=== PATIENT | male | born 1975 | race Caucasian/White ===

== ENCOUNTER 2016-10-20 09:52 | Day surgery (SDC) | payer OTHER ==
[2016-09-30 11:42] VITALS: BMI 28.0
--- NOTE | 2016-09-30 12:12 | PAT Medication Instructions ---
Service Date Sep 30, 2016. Current Home Medication List Aspirin (Aspirin Ec), 81 MG PO QAM Atorvastatin (Lipitor), 5 MG PO HS Lisinopril (Zestril), 2.5 MG PO QAM Metoprolol Succ (Toprol Xl) (Toprol-Xl), 12.5 MG PO BID Nitroglycerin (Nitrostat), 0.4 MG UT PRN [Isosorbide Dinitrate], 1 TAB PO QAM Medication Instructions For Your Scheduled Surgery - Continue as directed: Nitroglycerin (Nitrostat), 0.4 MG UT PRN - Hold the following medications the morning of surgery: Lisinopril (Zestril), 2.5 MG PO QAM - Take the following medications the morning of surgery with a sip of water OTHERWISE NOTHING TO EAT OR DRINK AFTER MIDNIGHT: [Isosorbide Dinitrate], 1 TAB PO QAM Aspirin (Aspirin Ec), 81 MG PO QAM Metoprolol Succ (Toprol Xl) (Toprol-Xl), 12.5 MG PO BID - Take the following medications as scheduled the night before surgery: Atorvastatin (Lipitor), 5 MG PO HS Metoprolol Succ (Toprol Xl) (Toprol-Xl), 12.5 MG PO BID If you have any questions please call us at [phone] or [phone] or [phone]
[2016-09-30 12:57] LABS: BASO % 0.7 %; BASO ABS # 0.08 K/uL (0-0.2); COMPLETE YES; EOS % 2.5 %; HEMATOCRIT 46.1 % (42-52); IG% 0.3 %; LYMPH % 21.6 %; LYMPH ABS # 2.58 K/uL (1.2-3.4); MEAN CELL VOLUME 91.7 fL (80-100); MEAN CORPUSCULAR HEMOGLOBIN 31.4 pg (25-34); MEAN CORPUSCULAR HGB CONC 34.3 g/dl (32-36); MEAN PLATELET VOLUME 11.3 fL (7.4-10.4); MONO % 7.7 %; NEUT % 67.2 %; PLATELET COUNT 180 K/uL (130-400); RED BLOOD COUNT 5.03 M/uL (4.7-6.1); WHITE BLOOD COUNT 11.93 K/uL (4.8-10.8)
[2016-09-30 13:06] LABS: BUN/CREATININE RATIO 10.5 (10-20); CALCIUM 9.3 mg/dl (8.5-10.1); CREATININE 1.1 mg/dl (0.60-1.40); POTASSIUM 4.1 mmol/L (3.5-5.1)
--- NOTE | 2016-09-30 13:12 | DIAGNOSTIC IMAGING REPORT ---
CHEST PREADMISSION(PA/LAT) CLINICAL HISTORY: PAT preoperative evaluation COMPARISON STUDY: No previous studies for comparison. FINDINGS: The bones soft tissues and hemidiaphragms are normal. The cardiomediastinal silhouette is normal. The lungs are clear. The pulmonary vasculature is normal. IMPRESSION: Negative chest. The above report was generated using voice recognition software. It may contain grammatical, syntax or spelling errors. Electronically signed by: Everett Stoll M.D. 09/30/2016 1:11 PM Dictated Date/Time: 09/30/2016 1:11 PM
[2016-09-30 13:21] LABS: URINE APPEARANCE CLEAR (CLEAR); URINE BILIRUBIN NEG (NEG); URINE COLOR YELLOW; URINE NITRITE NEG (NEG); URINE PH 6.5 (4.5-7.5); UROBILINOGEN NEG (NEG); ZZUR CULT IF INDIC CLEAN CATCH NO
[2016-09-30 13:23] LABS: MANUAL MICROSCOPIC REQUIRED? NO; REVIEW REQ? NO
[~2016-10-20] VITALS: Ht 182.9 cm; Wt 96.0 kg
[~2016-10-20 09:52] MED LIST: ASPI81TA28 PO; ATOR10TA88 PO; ATROPINE SULFATE 0.1 MG/ML 5ML SYR IV PRN; CEFAZOLIN 2000 MG/60 ML D5W IV SCH; EpHEDrine SULFATE INJ 50 MG/ML AMP IV PRN; FENTANYL CITRATE INJ 50 MCG/1 ML 2 ML VIAL IV PRN; FENTANYL CITRATE INJ 50 MCG/1 ML 2 ML VIAL ONE; ISOSORBIDE DINITRATE PO; LACTATED RINGER'S 1000ML 1,000 ML IV SCH; LISI-729 PO; METO25TA3 PO; MIDAZOLAM HCL 1 MG/ML 2ML VIAL ONE; NTRGSL/4 UT; ONDANSETRON INJ 2 MG/ML 2 ML VIAL IV PRN
--- NOTE | 2016-10-20 10:06 | History & Physical Bridge Note ---
H&P Re-Evaluation Bridge Note: I have examined the patient, reviewed the History & Physical and in the interval since the performance of the History & Physical I have noted the following changes of clinical significance: No changes noted
--- NOTE | 2016-10-20 10:07 | History and Physical ---
History & Physical Date Oct 20, 2016. Chief Complaint Back and leg pain History of Present Illness The patient is a 41 year old male with complaints of back and leg pain Additional History Hepatic Disease: No Endocrine Disorder: No Kidney Disease: No Hypertension: Yes Heart Disease: No Bleeding Tendencies: No Infectious Diseases: No Allergies Coded Allergies: BEE STING (Unverified Allergy, Unknown, SWELLING AT SITE, 09/30/16) NO KNOWN DRUG ALLERGIES (Unverified Allergy, Unknown, NONE, 09/30/16) Home Medications Scheduled Aspirin (Aspirin Ec), 81 MG PO QAM Atorvastatin (Lipitor), 5 MG PO HS Lisinopril (Zestril), 2.5 MG PO QAM Metoprolol Succ (Toprol Xl) (Toprol-Xl), 12.5 MG PO BID Nitroglycerin (Nitrostat), 0.4 MG UT PRN [Isosorbide Dinitrate], 1 TAB PO QAM Physical Examination Skin: warm/dry, no rash Eyes: normal inspection, EOMI, sclerae normal ENT: normal ENT inspection, pharynx normal Head: normocephalic, atraumatic Neck: supple, no adenopathy, trachea midline Respiratory/Chest: lungs clear, normal breath sounds, no respiratory distress Cardiovascular: regular rate, rhythm, no edema, no murmur Abdomen / GI: normal bowel sounds, non tender Back: normal inspection Extremities: normal inspection, normal range of motion Neurologic/Psych: no motor/sensory deficits, alert, normal reflexes, oriented x 3 Diagnosis Herniated nucleus pulposus L5-S1 on the left Plan of Treatment Lumbar laminectomy L5-S1 on the left
[2016-10-20 10:10] VITALS: Ht 182.9 cm; Wt 96.0 kg
[2016-10-20 10:11] VITALS: BP 165/98; PULSE 72; TEMP 36.9; O2SAT 93
[2016-10-20] MEDS ORDERED: BACITRACIN 50000 UNIT VIAL ONE (10:27)
[2016-10-20] MEDS ORDERED: BUPIVACAINE/EPINEPHRINE 0.5% MPF 1:200,000 10 ML VIAL ONE (10:27)
[2016-10-20] MEDS ORDERED: FENTANYL CITRATE INJ 50 MCG/1 ML 2 ML VIAL ONE (11:00)
[2016-10-20] MEDS ORDERED: HYDROmorphone INJ 2 MG/ML SYR/VIAL ONE (11:00)
[2016-10-20] MEDS ORDERED: LIDOCAINE HCL 2% 2 ML VIAL (20MG/ML) ONE (11:24)
[2016-10-20] MEDS ORDERED: DEXAMETHASONE SOD INJ 4 MG/ML VIAL ONE (11:24)
[2016-10-20] MEDS ORDERED: ROCURONIUM BROMIDE 10 MG/ML 5 ML VIAL ONE (11:24)
[2016-10-20] MEDS ORDERED: PROPOFOL IV EMULSION 10 MG/ML 20 ML VIAL IV ONE (11:24)
[2016-10-20] MEDS ORDERED: NEOSTIGMINE METHYLSULFATE 1 MG/ML 10ML VIAL ONE (11:24)
[2016-10-20] MEDS ORDERED: LABETALOL HCL IV 5 MG/ML 20ML IV ONE (11:24)
[2016-10-20] MEDS ORDERED: EpHEDrine SULFATE 50MG/5ML SYR ONE (11:24)
[2016-10-20] MEDS ORDERED: ONDANSETRON INJ 2 MG/ML 2 ML VIAL ONE (11:24)
[2016-10-20] MEDS ORDERED: GLYCOPYRROLATE INJ 0.2 MG/ML VIAL ONE (11:24)
[2016-10-20] MEDS ORDERED: KETOROLAC TROMETHAMINE 30 MG/ML VIAL ONE (11:24)
[2016-10-20] MEDS ORDERED: OXYC-57 PO (11:43)
--- NOTE | 2016-10-20 11:43 | Discharge Instructions ---
Discharge Instructions Date of Service Oct 20, 2016. Admission Reason for Admission: Lumbar Spinal Stenosis Discharge Discharge Diagnosis / Problem: herniated disc L5-S1 Discharge Goals Goal(s): Improve function Activity Recommendations Activity Limitations: per Instructions/Follow-up section . Instructions / Follow-Up Instructions / Follow-Up ACTIVITY RECOMMENDATIONS: SELF CARE INSTRUCTIONS AFTER A LAMINECTOMY 1. No prolonged sitting (less than 30 minutes for the first 3 weeks after surgery). 2. No bending, lifting more than 5 pounds, or twisting (roll like a log when turning in bed). 3. You may shower 3 days after surgery if no drainage from wound. Thoroughly dry wound. Do not soak in the tub. 4. Please walk as much as you can for exercise. Gradually increase the distance that you walk as your endurance increases. 5. You may drive in 7-10 days if you are comfortable and no longer requiring pain medications. SPECIAL CARE INSTRUCTIONS: VERY IMPORTANT TO READ AND REVIEW A. Your surgical incision has been closed with a cosmetic suture under the skin that will dissolve in about 6 weeks. In 14 days, you can use a pair of clean scissors and cut the suture that is left outside of the skin at the ends of your incision. B. Complications are uncommon, but please contact us if you have any signs or symptoms of: 1. wound infection (fever higher than 102.5 degrees F, redness, separation of wound, drainage, or increasing pain from the incision) 2. blood clots in legs (pain, swelling, redness and warmth in legs) 3. urinary tract infection (fever higher than 102.5 degrees, burning upon urination or increased frequency of urination) 4. nerve problems (inability to walk on your toes or heels, numbness, loss of bowel or bladder control) 5. any other symptoms that concern you. C. Please call the office at if you have any concerns or questions about your operation or recovery. MANAGING PAIN AFTER SPINAL SURGERY 1. Narcotic medication is intended for short-term use and will be provided for surgical pain. Surgical pain usually lasts for a period of 4-6 weeks. Narcotic medication includes Percocet, Vicodin, Darvocet, Tylenol #3 or Lortab. 2. Longer-term pain is more appropriately treated with non-narcotic medication such as Tylenol ES. 3. Muscle spasm is not appropriately treated with narcotics. Muscle relaxers such as Soma, Flexeril or Skelaxin can be used along with Tylenol ES. 4. Remember that we all live with some "aches and pains". This is not unusual or uncommon after an injury or as we get older. 5. We will provide appropriate medication within the normal guidelines of their prescribed use. We will also be very cautious and aware of potential abuse and extended duration of patients' medication needs. 6. Please allow 2-3 days to process refills. Prescriptions will not be mailed but must be picked up at the office. FOLLOW UP VISIT: Keep your scheduled follow-up appointment. Any questions, please call the office at . Current Hospital Diet Patient's current hospital diet: Discharge Diet Recommended Diet: Regular Diet Procedures Procedures Performed: L5-S1 Microdiscectomy Pending Studies Studies pending at discharge: no Medical Emergencies . Who to Call and When: Medical Emergencies: If at any time you feel your situation is an emergency, please call 911 immediately. . Non-Emergent Contact Non-Emergency issues call your: Primary Care Provider . "Provider Documentation" section prepared by Gibran Betancourt. . VTE Core Measure Inpt VTE Proph given/why not?: Jan Mejia, SCD's
[2016-10-20] MEDS ORDERED: OXYCODONE HCL IR 5 MG TAB (IMMEDIATE RELEASE) PO PRN (11:45)
[2016-10-20] MEDS ORDERED: ACETAMINOPHEN 325 MG TAB PO PRN (11:45)
[2016-10-20] MEDS ORDERED: ACETAMINOPHEN 650 MG SUPP PR PRN (11:45)
[2016-10-20] MEDS ORDERED: HYDROmorphone INJ 1 MG/ML SYR IV PRN (11:45)
--- NOTE | 2016-10-20 11:47 | [facility] Operative Report ---
Operative Report Operative Date Oct 20, 2016. Pre-Operative Diagnosis Herniated Nucleus Pulposus L5-S1 on the Left Post-Operative Diagnosis Herniated Nucleus Pulposus L5-S1 on the Left Procedure(s) Performed L5-S1 Microdiscectomy Surgeon Dr. Betancourt Plant Physiologist Surgeon(s) none Estimated Blood Loss 10 ml Findings Herniated free fragment L5-S1 on the left Specimens none per surgeon Description of Procedure Patient was met with preoperatively case discussed all questions are dressed. After informed consent patient was taken back to the operative suite and after undergoing successful intubation placed in a prone position on the Kyle table top of the Isaiah frame. All bony prominences well padded eyes inspected to ensure no external pressure. Lumbar spine is prepped and draped nostril fashion. With the assistance of fluoroscopy we identified the 5 S1 interlaminar space. Midline incision was then created overlying this region. Sharp dissection with the assistance of Bovie cautery was performed onto an exposing the interlaminar space at L5-S1 the left. Self-retaining retractors placed. Then created a small laminotomy excising lateral portion of the ligamentum flavum to expose it compressed traversing S1 nerve root. This was mobilized medially and several loose fragments of disc material identified and retrieved. The area was then explored to ensure all loose fragments were addressed. Then copiously irrigated. Incision was then closed with 1 Vicryl in the fascia 2-0 Vicryl subcutaneously for Monocryl for final skin closure. Steri-Strips sterile dressings placed. Patient we can taken to PACU stable condition. I attest to the content of the Intraoperative Record and any orders documented therein. Any exceptions are noted below.
[2016-10-20] MEDS ORDERED: FLOSEAL HEMOSTATIC MATRIX 5ML TOP ONE (11:53)
--- NOTE | 2016-10-20 11:53 | DIAGNOSTIC IMAGING REPORT ---
INTRAOPERATIVE LUMBAR SPINE SINGLE VIEW CLINICAL HISTORY: L5-S1 MICRODISCECTOMY COMPARISON STUDY: No previous studies for comparison. FINDINGS: 6 seconds of fluoroscopic time was utilized. A single intraoperative fluoroscopic spot images provided for interpretation. There are skin retractors at the S1 level posteriorly. There is a metallic probe projecting over the posterior aspect the L5-S1 disc. IMPRESSION: Intraoperative fluoroscopic spot image for localization purposes Electronically signed by: Michael Thomas M.D. 10/20/2016 11:51 AM Dictated Date/Time: 10/20/2016 11:51 AM
--- NOTE | 2016-10-20 12:24 | Anesthesiology Progress Note ---
Anesthesia Post Op Note Date & Time Oct 20, 2016 at 12:24 Vital Signs Pain Intensity: 0 Vital Signs Past 12 Hours Date Time Temp Pulse Resp B/P (MAP) Pulse Ox O2 Delivery O2 Flow Rate FiO2 10/20/16 12:18 67 20 10/20/16 12:18 67 20 93 10/20/16 12:15 123/79 10/20/16 12:15 36.1 66 4 123/79 (92) 94 Nasal Cannula 2 10/20/16 12:13 71 23 10/20/16 12:13 71 23 93 10/20/16 12:10 124/84 10/20/16 12:08 67 20 97 10/20/16 12:08 67 20 10/20/16 12:07 72 21 96 10/20/16 12:07 72 21 10/20/16 12:05 121/84 10/20/16 12:02 67 19 10/20/16 12:02 67 19 97 10/20/16 12:00 129/91 10/20/16 11:57 70 12 98 10/20/16 11:57 70 12 10/20/16 11:55 130/88 10/20/16 11:52 36.2 91 16 152/110 99 Mask 10 10/20/16 11:52 89 21 152/110 98 10/20/16 11:52 89 21 10/20/16 10:11 36.9 72 20 165/98 (120) 93 Room Air Notes Mental Status: alert / awake / arousable, participated in evaluation Pt Amnestic to Procedure: Yes Nausea / Vomiting: adequately controlled Pain: adequately controlled Airway Patency, RR, SpO2: stable & adequate BP & HR: stable & adequate Hydration State: stable & adequate Anesthetic Complications: no major complications apparent
[2016-10-20 12:35] VITALS: BP 132/81; PULSE 61; TEMP 36.7; O2SAT 94
[2016-10-20 13:05] VITALS: BP 123/82; PULSE 59; O2SAT 94
[2016-10-20 13:35] VITALS: BP 131/86; PULSE 59; TEMP 36.6; O2SAT 96
== END 2016-10-20 13:45 | disposition home or self-care (01) ==
LOC: C.ACU 09:52
PROVIDERS: ATTEND Orthopaedic Surgery Orthopaedic Surgery of the Spine
DX: M51.27 Other intervertebral disc displacement, lumbosacral region (principal); Z79.82 Long term (current) use of aspirin

== ENCOUNTER 2017-02-19 16:40 | Emergency (ER) | payer OTHER ==
[~2017-02-19] VITALS: Ht 182.9 cm; Wt 88.0 kg
[~2017-02-19 16:40] MED LIST changes: +ATOR10TA82 PO; -ATOR10TA88 PO; -ATROPINE SULFATE 0.1 MG/ML 5ML SYR IV PRN; -CEFAZOLIN 2000 MG/60 ML D5W IV SCH; -EpHEDrine SULFATE INJ 50 MG/ML AMP IV PRN; -FENTANYL CITRATE INJ 50 MCG/1 ML 2 ML VIAL IV PRN; -FENTANYL CITRATE INJ 50 MCG/1 ML 2 ML VIAL ONE; -LACTATED RINGER'S 1000ML 1,000 ML IV SCH; -MIDAZOLAM HCL 1 MG/ML 2ML VIAL ONE; -ONDANSETRON INJ 2 MG/ML 2 ML VIAL IV PRN
[2017-02-19 16:42] VITALS: BP 180/117; PULSE 117; TEMP 36.7; O2SAT 97; Ht 182.9 cm; Wt 88.0 kg
[2017-02-19] MEDS ORDERED: Isosorbide PO (17:06)
[2017-02-19] MEDS ORDERED: OXYCODONE/ACETAMINOPHEN 5-325 TAB PO ONE (17:15)
--- NOTE | 2017-02-19 19:12 | DIAGNOSTIC IMAGING REPORT ---
LUMBAR SPINE MRI HISTORY: severe lumbar back pain with left-sided radiculopathy and weakness TECHNIQUE: Multiplanar multisequence MRI of the lumbar spine was performed without the use of contrast. COMPARISON: None. FINDINGS: For the purpose of the report the L5-S1 disc space will be located on axial image 27 of 30. Alignment and curvature intact. No acute fracture or subluxation. Mild anterior wedging within the superior endplate of L1. This is consistent with an old compression deformity. Disc spaces are relatively preserved. The conus terminates at the L1-L2 disc space level. The visualized retroperitoneal soft tissues are unremarkable. L1-L2: No significant central canal or neural foraminal narrowing. L2-L3: No significant central canal or neural foraminal narrowing. L3-L4: No significant central canal or neural foraminal narrowing. L4-L5: Small broad-based posterior disc bulge with a tiny focal central disc protrusion. This results in mild central canal and mild bilateral neural foraminal narrowing. L5-S1: Postoperative changes consistent with prior left hemilaminectomy. There is a 13 x 7 mm T2 hyperintense and T1 isointense oval-shaped nodule compressing the left side of the thecal sac. This abuts the disc space at this level and favors a large disc extrusion. This compresses the transiting left S1 nerve root. This also results in moderate to severe left-sided central canal narrowing. Some of this could be related to postoperative granulation tissue. IMPRESSION: 1. Postoperative changes consistent with prior left L5-S1 hemilaminectomy. 2. There is a 13 x 7 mm oval-shaped nodule compressing the left side of the thecal sac at the L5-S1 level. This appears to connect to the disc and therefore favors a large disc extrusion. Some of this could be related to postoperative granulation tissue. This lesion compresses the transiting left S1 nerve root. 3. Small broad-based posterior disc bulge with a tiny focal central disc protrusion at L4-L5 resulting in mild central canal narrowing. Electronically signed by: Bradley Jeter M.D. 02/19/2017 7:10 PM Dictated Date/Time: 02/19/2017 7:03 PM
[2017-02-19] MEDS ORDERED: MoRPHine SULFATE 10 MG/ML CARP/VIAL IV STA (19:51)
[2017-02-19] MEDS ORDERED: ONDANSETRON INJ 2 MG/ML 2 ML VIAL IV STA (19:51)
[2017-02-19] MEDS ORDERED: DEXAMETHASONE **PF** INJ 10 MG/ML VIAL IV ONE (20:00)
[2017-02-19] MEDS ORDERED: METH4PAK PO (20:21)
[2017-02-19] MEDS ORDERED: OXYC-57 PO (20:21)
[2017-02-19] MEDS ORDERED: PERCOCET HOME PACK PO ONE (20:30)
--- NOTE | 2017-02-19 21:45 | EMERGENCY ROOM VISIT NOTE ---
ED Visit Note First contact with patient: 16:49 Chief Complaint: Lower back pain. History of Present Illness: Mr. Roberson is a 42-year-old white male who ambulates into the ED complaining of lumbar back pain. Historically patient had an L5-S1 herniated disc and on 10/20/2016 he had a microdiscectomy performed by Dr. Betancourt. Patient reports postoperatively has been doing well. Patient reports he returned to work with medium work duty. He reports approximately 3 weeks ago he started having return of pain. He reports at that time it was mild but it has progressed over the last 3 weeks. He reports last Tuesday, 6 days ago, his pain became severe. Since that time his pain has been constant. He places his discomfort at the L4 through S1 area over the bony prominences and minimally just left lateral to the bony spine. He describes his pain as a sharp sensation. He rates his discomfort 9/10. He reports his pain is radiating into his buttocks and then moves to the medial aspect of the left lower leg. Pain typically stops at the level of the ankle but intermittently does go down into the foot. This pain worsens with all movement of the back and palpation of the lower lumbar spine. He has not identified any alleviating factors related to the pain. He reports he has been using ibuprofen without relief of his discomfort. Associated with with his pain he feels like his left lower leg is weak and intermittently he has paresthesias following the same dermatomal tract. Additionally he reports he was seen by Dr. Betancourt's physician captain assistant 5 days ago. No additional therapies were ordered but he was encouraged to go to the emergency department for worsening pain. He denies fevers, chills, sweats, skin eruptions, skin color changes, recent direct or repetitive trauma to the back, abdominal pain, nausea, vomiting, diarrhea, constipation, rectal bleeding, black/tarry stools, urinary symptoms, hematuria, genital paresthesias, bowel and bladder dysfunction. Review of Systems: As noted above in history of present illness. All body systems were reviewed and found to be negative as noted above. Past Medical History: As previously noted, heart disease, hypertension, status post cardiac stent and unspecified knee surgery. Current Medications: Zestril, aspirin, Toprol, Lipitor, nitroglycerin. Allergies to Medications: Patient denies. Social History: Patient is currently employed; he feels safe in his home environment; he admits to tobacco use and denies alcohol use. Physical Examination: Vital Signs: Date Time Temp Pulse Resp B/P (MAP) Pulse Ox O2 Delivery O2 Flow Rate FiO2 02/19/17 16:42 36.7 117 16 180/117 97 Room Air GENERAL: 42-year-old male in mild to moderate distress due to pain, nontoxic- appearing, afebrile and hemodynamically stable. NEUROLOGICAL: Awake, alert and oriented to person, place and time. Answering questions appropriately and following commands. Good hand eye coordination. SKIN: Warm, dry and pink. No soft tissue eruptions or trauma noted. HEENT: Atraumatic and normocephalic. BACK: No tenderness over the bony cervical and thoracic spine. No CVA tenderness. Moderate tenderness in the L4 through S1 bony prominence of the spine without for many, swelling, ecchymosis or erythema. I do not appreciate any crepitus or step-offs. There is also mild pain in the left lumbar paraspinous musculature in this area without spasm. Positive straight leg raise test that approximately 25 on the left. THORAX: Lungs sounds are clear to auscultation and equal bilaterally with symmetrical chest wall. ABDOMEN: Flat, soft and nontender. Positive bowel sounds in all quadrants. No guarding, rigidity or organomegaly. LOWER EXTREMITIES: Moves all extremities well on command and with purpose. All distal neurovascular statuses are intact and equal bilaterally. No calf tenderness or cords. Muscle strength on the left with knee flexion and extension and ankle plantar flexion and dorsiflexion are slightly weaker than the right. Patellar tendons are intact and equal bilaterally. He was able to distinguish light sensations through all dermatomes of the lower legs. ED Course: Patient is assessed as noted above. Patient's medication list was reviewed. Patient was given one Percocet 5/325 mg tablet by mouth for pain. Lumbar Spine MRI: Was reviewed by myself and read by the radiologist showing postoperative changes consistent with prior to L5-S1 hemilaminectomy. There is a 13 x 7 mm oval-shaped nodule compressing the left side of the thecal sac at the L5-S1 level. This appears to be connected to the disc and therefore favors a large disc extrusion. This lesion compresses the transiting left S1 nerve root. Small broad-based posterior disc bulging with a tiny focal central disc protrusion at L4-L5 resulting in mild central canal narrowing. Patient was reassessed multiple times during his stay in the emergency department. Patient's case was reviewed with Dr. Lee; we agreed on diagnostic approach, treatment, disposition and plan. Patient's case was consulted with Jersey Carlos PA-C; he recommended an IV course of Decadron, discharged to home with edge all dosepak, pain medications and office follow-up this week. An IV lock was initiated and patient received 10 mg of Decadron, 6 mg of morphine and 4 mg of Zofran for his symptoms. After his medications patient was reassessed and subjectively reported he was feeling better. Patient is educated about today's findings and instructed on his treatment plan ; he verbalized understanding and agreement with this plan. Clinical Impression: Lumbar back pain with left-sided radiculopathy. Decision-Making: Initially my differential diagnosis I considered herniated disc , muscle strain, muscle spasm, ureter calculus , discitis and other causes. Disposition: Patient discharged home in stable condition accompanied by female friends; prior to departure he was reassessed and subjectively reported he was feeling much better and rated his overall discomfort 2/10. Plan: Comfort measures were discussed with the patient including rest, proper lifting and moving techniques, and a sliding pain medication scale of ibuprofen, Percocet and acetaminophen; patient is given appropriate narcotic precautions and his name was checked on the state database and no red flags were noted. Patient was prescribed a Medrol Dosepak. Patient is encouraged to call his back surgeon tomorrow and inform them of today 's ED visit and request follow-up care and treatment. Patient was encouraged return ED for worsening pain, worsening leg weakness/ numbness/tingling, fevers, abdominal pain, bowel and bladder dysfunction, genital paresthesias or any new/concerning symptoms.
== END 2017-02-19 20:34 | disposition home or self-care (01) ==
LOC: C.EDB 16:41 → C.EDD 20:34
DX: M54.16 Radiculopathy, lumbar region (principal); Z98.890 Other specified postprocedural states; I11.9 Hypertensive heart disease without heart failure; F17.200 Nicotine dependence, unspecified, uncomplicated; Z79.82 Long term (current) use of aspirin; Z95.5 Presence of coronary angioplasty implant and graft

== ENCOUNTER → 2017-03-04 | Day surgery (SDC) | payer OTHER ==
[2017-02-22 17:20] LABS: HEMATOCRIT 46.4 % (42-52); HEMOGLOBIN 16.3 g/dL (14.0-18.0); MEAN CELL VOLUME 91.7 fL (80-100); MEAN CORPUSCULAR HEMOGLOBIN 32.2 pg (25-34); MEAN CORPUSCULAR HGB CONC 35.1 g/dl (32-36); PLATELET COUNT 209 K/uL (130-400); RED CELL DISTRIBUTION WIDTH CV 13.9 % (11.5-14.5); RED CELL DISTRIBUTION WIDTH SD 46.6 fL (36.4-46.3); WHITE BLOOD COUNT 14.36 K/uL (4.8-10.8)
[2017-02-22 17:21] LABS: BASO % 0.1 %; BASO ABS # 0.02 K/uL (0-0.2); EOS % 0.1 %; EOS ABS # 0.01 K/uL (0-0.5); IG# 0.02 K/uL (0.00-0.02); LYMPH % 9.1 %; LYMPH ABS # 1.31 K/uL (1.2-3.4); MEAN PLATELET VOLUME 10.9 fL (7.4-10.4); MONO ABS # 0.43 K/uL (0.11-0.59); NEUT % 87.6 %; NEUT ABS # 12.57 K/uL (1.4-6.5)
[2017-02-22 17:46] LABS: BLOOD UREA NITROGEN 15 mg/dl (7-18); CALCIUM 9.3 mg/dl (8.5-10.1); CARBON DIOXIDE 28 mmol/L (21-32); CREATININE 1.18 mg/dl (0.60-1.40); GLUCOSE 118 mg/dl (70-99); POTASSIUM 3.6 mmol/L (3.5-5.1); SODIUM 138 mmol/L (136-145)
[2017-03-02 10:42] VITALS: BMI 29.0
[~2017-03-04] VITALS: Ht 182.9 cm; Wt 97.7 kg
[~2017-03-04] MED LIST changes: +ATOR-22 PO; -ATOR10TA82 PO; +ATROPINE SULFATE 0.1 MG/ML 5ML SYR IV PRN; +CEFAZOLIN 2000MG IV PUSH 10 ML IV SCH; +EpHEDrine SULFATE INJ 50 MG/ML AMP IV PRN; +FENTANYL CITRATE INJ 50 MCG/1 ML 2 ML VIAL IV PRN; +HYDR12.55 PO; +HYDROmorphone INJ 1 MG/ML SYR IV PRN; +HydrALAZINE HCL 20 MG/ML VIAL IV PRN; +HydrALAZINE HCL 20 MG/ML VIAL ONE; +IMDSR/30 PO; +ISM20 PO; -ISOSORBIDE DINITRATE PO; +ISOSORBIDE MONONITRATE 20 MG TAB PO SCH; +LACTATED RINGER'S 1000ML 1,000 ML IV SCH; +LISI20TA3 PO; +LISINOPRIL 5 MG TAB PO SCH; +METOPROLOL SUCC 25MG EXT REL TAB PO SCH; +NITROGLYCERIN 0.4 MG SL PER TAB CHARGE UT PRN; +ONDANSETRON INJ 2 MG/ML 2 ML VIAL IV PRN; +OXYC15TA89 PO; +PATIENT'S HEIGHT AND/OR WEIGHT NEEDED SCH; +RXC5 PO
[2017-03-04 12:05] VITALS: BP 179/132; PULSE 80; TEMP 36.3; O2SAT 99; Ht 182.9 cm; Wt 97.7 kg
[2017-03-04 12:31] LABS: HEMATOCRIT 42.6 % (42-52); MEAN CELL VOLUME 90.3 fL (80-100); MEAN CORPUSCULAR HEMOGLOBIN 31.8 pg (25-34); MEAN PLATELET VOLUME 10.5 fL (7.4-10.4); PLATELET COUNT 214 K/uL (130-400); RED CELL DISTRIBUTION WIDTH CV 13.6 % (11.5-14.5); RED CELL DISTRIBUTION WIDTH SD 45.2 fL (36.4-46.3); WHITE BLOOD COUNT 10.68 K/uL (4.8-10.8)
[2017-03-04 12:47] LABS: MEAN CORPUSCULAR HGB CONC 35.2 g/dl (32-36)
[2017-03-04 13:15] VITALS: BP 192/115; PULSE 86; TEMP 37; O2SAT 98
--- NOTE | 2017-03-04 13:30 | Anesthesiology Progress Note ---
Anesthesia Progress Note Date of Service Mar 04, 2017. Progress Notes The patient was scheduled for L5-S1 revision/decompression with Dr. Betancourt this afternoon. On arrival the patient's blood pressure was markedly elevated to 190-200/134 which was measured on both arms with the appropriate sized BP cuff, HR was 83. The patient is asymptomatic denying chest pain, shortness of breath, lightheaded or dizziness or severe headache or visions changes. He admits that he is not compliant with his BP medications and has skipped them several times this week. The patient has a h/o CAD with an [place] 06/27/15 resulting in cardiac cath with MARIO to the Lcx. He sees cardiology in [place]. I spoke to Dr. Betancourt who agrees that the patient's blood pressure needs to be better controlled prior to elective surgery and would like the patient admitted to the medicine service. I spoke to Dr. Oshea who will be admitting the patient and gave him a full report as well as the nurse on the floor. The patient will be going to telemetry for close monitoring. While in the ASU the patient was given 5mg IV labetalol and 10mg IV hydralazine. BP prior to transfer to the floor was 164/117 HR 70s. An EKG showed no acute ischemic changes.
--- NOTE | 2017-03-04 14:01 | NUR ---
pt came from preop area, received a call from dr. luu and was told pt to be admitted for htn and dr. goodrich would write orders, pt brought to floor, bp-192/115, could not find an admission order, spoke with service dr. wood wrote orders, pt given hydralazine prn for bp at this time and stated that if he wasn't having surgery he wasn't staying at this time, pac ananth lobo came to floor to admit pt ref admission at this time stated he wasn't aware he was being admitted, pt signed ama paper, dr. mackey updated at this time, pt educated on htn and medication education.
--- NOTE | 2017-03-04 14:52 | NUR ---
pt given hydralazine prn pt bp still elevated attempted to give pt daily meds he did not take today but pt ride here and he wanted to leave, pt educated on meds and htn at this time, requesting to walk to door, pt did not want any w/c at this time, d/c to home with father and belongings retrieved from security .
== END | disposition home or self-care (01) ==
LOC: C.ACU 11:34
PROVIDERS: ATTEND Orthopaedic Surgery Orthopaedic Surgery of the Spine
DX: M48.061 Spinal stenosis, lumbar region without neurogenic claudication (principal); Z53.09 Procedure and treatment not carried out because of other contraindication

== ENCOUNTER → 2017-05-18 | Outpatient (CLI) | payer OTHER ==
[~2017-05-18] MED LIST changes: -ATROPINE SULFATE 0.1 MG/ML 5ML SYR IV PRN; -CEFAZOLIN 2000MG IV PUSH 10 ML IV SCH; -EpHEDrine SULFATE INJ 50 MG/ML AMP IV PRN; -FENTANYL CITRATE INJ 50 MCG/1 ML 2 ML VIAL IV PRN; -HYDR12.55 PO; -HYDROmorphone INJ 1 MG/ML SYR IV PRN; -HydrALAZINE HCL 20 MG/ML VIAL IV PRN; -HydrALAZINE HCL 20 MG/ML VIAL ONE; -IMDSR/30 PO; -ISOSORBIDE MONONITRATE 20 MG TAB PO SCH; -LACTATED RINGER'S 1000ML 1,000 ML IV SCH; -LISI20TA3 PO; -LISINOPRIL 5 MG TAB PO SCH; -METOPROLOL SUCC 25MG EXT REL TAB PO SCH; -NITROGLYCERIN 0.4 MG SL PER TAB CHARGE UT PRN; -ONDANSETRON INJ 2 MG/ML 2 ML VIAL IV PRN; -PATIENT'S HEIGHT AND/OR WEIGHT NEEDED SCH; -RXC5 PO
[2017-05-18 14:29] LABS: BASO % 0.4 %; BASO ABS # 0.06 K/uL (0-0.2); EOS ABS # 0.16 K/uL (0-0.5); HEMATOCRIT 44.3 % (42-52); HEMOGLOBIN 15.8 g/dL (14.0-18.0); IG# 0.06 K/uL (0.00-0.02); LYMPH % 22.2 %; LYMPH ABS # 3.39 K/uL (1.2-3.4); MEAN CELL VOLUME 87.9 fL (80-100); MEAN CORPUSCULAR HEMOGLOBIN 31.3 pg (25-34); MEAN CORPUSCULAR HGB CONC 35.7 g/dl (32-36); MEAN PLATELET VOLUME 10.6 fL (7.4-10.4); MONO % 5.8 %; MONO ABS # 0.88 K/uL (0.11-0.59); NEUT % 70.2 %; PLATELET COUNT 242 K/uL (130-400); RED CELL DISTRIBUTION WIDTH CV 13.3 % (11.5-14.5); RED CELL DISTRIBUTION WIDTH SD 42.8 fL (36.4-46.3); WHITE BLOOD COUNT 15.25 K/uL (4.8-10.8)
[2017-05-18 14:51] LABS: BLOOD UREA NITROGEN 19 mg/dl (7-18); CALCIUM 9.8 mg/dl (8.5-10.1); CARBON DIOXIDE 26 mmol/L (21-32); CREATININE 1.52 mg/dl (0.60-1.40); GLUCOSE 100 mg/dl (70-99); POTASSIUM 4.4 mmol/L (3.5-5.1); SODIUM 135 mmol/L (136-145)
== END | disposition home or self-care (01) ==
LOC: C.LAB 13:22
PROVIDERS: ATTEND Orthopaedic Surgery Orthopaedic Surgery of the Spine
DX: Z01.812 Encounter for preprocedural laboratory examination (principal)

== ENCOUNTER 2017-05-31 08:27 | Inpatient (IN) | payer OTHER ==
--- NOTE | 2017-05-16 16:36 | Anesthesiology Progress Note ---
Anesthesia Progress Note Date of Service May 16, 2017. Progress Notes Spoke with Neva at surgeon's office today to make her aware that Dr. Rosario is requesting cardiology evaluation prior to surgery. She states this will not be able to be done in time as he was a last minute add on for surgery and will need to be rescheduled until after obtaining cardiology clearance. She states she will take care of cancelling the patient/scheduling cardiology evaluation.
--- NOTE | 2017-05-16 19:00 | Anesthesiology Progress Note ---
Anesthesia Progress Note Date of Service May 16, 2017. Progress Notes Notified by OR charge nurse that patient called for time of procedure tomorrow and learned then that the case had been canceled. Patient reports that he was not notified about procedure being postponed or why it was postponed. Attempted to call the patient at 5:48 PM but reached the patient's answering machine. Called patient again at 6:32 PM and reached the patient. Apologized for general poor communication on behalf of the hospital and the inconvenience that this has caused. Explained to patient that the chart was received by PAT today as a last minute add on case and that the reviewing anesthesiologist felt it would be safest if the patient had cardiac clearance prior to proceeding. The patient stated that the case was scheduled about 3 weeks ago. Apologized again to patient about the situation. I will contact CLAUDETTE tomorrow and Dr. Betancourt's office to determine why the chart wasn't received earlier and how we can improve this process to better serve our patients. I will follow up with the patient again to explain how we will improve the process for future patients and I will ensure the patient's chart is monitored through [facility] so that his rescheduled date proceeds without additional complications. Munira Lai MD, PhD Anesthesiology
[2017-05-26 15:58] VITALS: BMI 25.0
[2017-05-31] VITALS (10 sets, daily range): BP systolic 95–120; BP diastolic 58–78; PULSE 57–69; TEMP 36.3–36.7; O2SAT 97–100; Ht 182.9 cm; Wt 83.6 kg
[~2017-05-31] VITALS: Ht 182.9 cm; Wt 83.6 kg
[~2017-05-31 08:27] MED LIST changes: +CEFAZOLIN 2000MG IV PUSH 15 ML IV SCH; +HYDR12.55 PO; +LACTATED RINGER'S 1000ML 1,000 ML IV SCH; -LISI-729 PO; +LISI20TA3 PO
[2017-05-31] MEDS ORDERED: HYDROmorphone INJ 1 MG/ML SYR IV PRN (09:15)
[2017-05-31] MEDS ORDERED: ATROPINE SULFATE 0.1 MG/ML 5ML SYR IV PRN (09:15)
[2017-05-31] MEDS ORDERED: ONDANSETRON INJ 2 MG/ML 2 ML VIAL IV PRN ×2 (09:15→14:00)
[2017-05-31] MEDS ORDERED: EpHEDrine SULFATE INJ 50 MG/ML AMP IV PRN (09:15)
[2017-05-31] MEDS ORDERED: FENTANYL CITRATE INJ 50 MCG/1 ML 2 ML VIAL IV PRN (09:15)
[2017-05-31 10:02] LABS: CALCIUM 9.6 mg/dl (8.5-10.1); CREATININE 1.22 mg/dl (0.60-1.40); POTASSIUM 3.8 mmol/L (3.5-5.1)
[2017-05-31] MEDS ORDERED: MIDAZOLAM HCL 1 MG/ML 2ML VIAL ONE (11:11)
[2017-05-31] MEDS ORDERED: FENTANYL CITRATE INJ 50 MCG/1 ML 2 ML VIAL ONE ×4 (11:11→13:47)
--- NOTE | 2017-05-31 11:16 | History and Physical ---
History & Physical Date May 31, 2017. Chief Complaint Back and leg pain History of Present Illness The patient is a 42 year old male with complaints of back and leg pain Additional History Hepatic Disease: No Endocrine Disorder: No Kidney Disease: No Hypertension: Yes Heart Disease: No Bleeding Tendencies: No Infectious Diseases: No Allergies Coded Allergies: BEE STING (Verified Allergy, Unknown, SWELLING AT SITE, 05/31/17) NO KNOWN DRUG ALLERGIES (Verified Allergy, Unknown, NONE, 05/31/17) Home Medications Scheduled Aspirin (Aspirin Ec), 81 MG PO QAM Atorvastatin (Lipitor), 20 MG PO HS Hydrochlorothiazide (Hydrochlorothiazide), 1 TAB PO QAM Isosorbide Mononitrate (Isosorbide Mononitrate), 30 MG PO QAM Lisinopril (Prinivil), 20 MG PO QAM Metoprolol Succ (Toprol Xl) (Toprol-Xl), 12.5 MG PO BID Oxycodone Hcl (Oxycontin), 5 MG PO Q6H Scheduled PRN Nitroglycerin (Nitrostat), 0.4 MG UT UD PRN for Chest Pain Physical Examination Skin: warm/dry, no rash Eyes: normal inspection, EOMI, sclerae normal ENT: normal ENT inspection, pharynx normal Head: normocephalic, atraumatic Neck: supple, no adenopathy, trachea midline Respiratory/Chest: lungs clear, normal breath sounds, no respiratory distress Cardiovascular: regular rate, rhythm, no edema, no murmur Abdomen / GI: normal bowel sounds, non tender Back: normal inspection Extremities: normal inspection, normal range of motion Neurologic/Psych: no motor/sensory deficits, alert, normal reflexes, oriented x 3 Diagnosis Herniated nucleus pulposus L5-S1 Plan of Treatment L5-S1 microdiscectomy on the left
--- NOTE | 2017-05-31 11:39 | History and Physical ---
History & Physical Date May 31, 2017. Chief Complaint Back and leg pain History of Present Illness The patient is a 42 year old male with complaints of back and leg pain Additional History Hepatic Disease: No Endocrine Disorder: No Kidney Disease: No Hypertension: Yes Heart Disease: No Bleeding Tendencies: No Infectious Diseases: No Allergies Coded Allergies: BEE STING (Verified Allergy, Unknown, SWELLING AT SITE, 05/31/17) NO KNOWN DRUG ALLERGIES (Verified Allergy, Unknown, NONE, 05/31/17) Home Medications Scheduled Aspirin (Aspirin Ec), 81 MG PO QAM Atorvastatin (Lipitor), 20 MG PO HS Hydrochlorothiazide (Hydrochlorothiazide), 1 TAB PO QAM Isosorbide Mononitrate (Isosorbide Mononitrate), 30 MG PO QAM Lisinopril (Prinivil), 20 MG PO QAM Metoprolol Succ (Toprol Xl) (Toprol-Xl), 12.5 MG PO BID Oxycodone Hcl (Oxycontin), 5 MG PO Q6H Scheduled PRN Nitroglycerin (Nitrostat), 0.4 MG UT UD PRN for Chest Pain Diagnosis Recurrent disc herniation L5-S1 Plan of Treatment Decompression fusion L5-S1
[2017-05-31] MEDS ORDERED: BUPIVACAINE/EPINEPHRINE 0.5% MPF 1:200,000 30 ML VIAL ONE (11:50)
[2017-05-31] MEDS ORDERED: BACITRACIN 50000 UNIT VIAL ONE (11:51)
[2017-05-31] MEDS ORDERED: HYDROmorphone INJ 2 MG/ML SYR/VIAL ONE ×2 (12:41→13:47)
[2017-05-31] MEDS ORDERED: PROPOFOL IV EMULSION 10 MG/ML 20 ML VIAL IV ONE (12:53)
[2017-05-31] MEDS ORDERED: DEXAMETHASONE SOD INJ 4 MG/ML VIAL ONE (12:53)
[2017-05-31] MEDS ORDERED: ONDANSETRON INJ 2 MG/ML 2 ML VIAL ONE ×2 (12:53→14:11)
[2017-05-31] MEDS ORDERED: LIDOCAINE HCL 2% 2 ML VIAL (20MG/ML) ONE (12:53)
[2017-05-31] MEDS ORDERED: ROCURONIUM BROMIDE 10 MG/ML 5 ML VIAL IV ONE (12:53)
[2017-05-31] MEDS ORDERED: FLOSEAL HEMOSTATIC MATRIX 10ML TOP ONE (13:34)
--- NOTE | 2017-05-31 13:50 | DIAGNOSTIC IMAGING REPORT ---
LUMBAR SPINE 2 OR 3 VIEW CLINICAL HISTORY: L5-S1 DECOMPRESSION/FUSION/INTERBODY COMPARISON STUDY: Lumbar spine radiographs February 22, 2017. Fluoroscopy time: 16.7 seconds. FINDINGS: 2 fluoroscopic images demonstrate an L5-S1 discectomy with posterior decompression and bilateral pedicle screw placement at the L5 and S1 levels. There are interconnecting rods. Hardware is intact. IMPRESSION: Expected findings following L5-S1 discectomy, posterior decompression and bilateral pedicle screw fusion. Electronically signed by: Keenan Davis M.D. 05/31/2017 1:49 PM Dictated Date/Time: 05/31/2017 1:48 PM
[2017-05-31] MEDS ORDERED: SODIUM CHLORIDE 0.9% 1000ML 1,000 ML IV SCH (13:58)
--- NOTE | 2017-05-31 13:58 | [facility] Operative Report ---
Operative Report Operative Date May 31, 2017. Pre-Operative Diagnosis Recurrent disc herniation L5-S1 Post-Operative Diagnosis Recurrent disc herniation L5-S1 Procedure(s) Performed 1. Revision decompression medial facetectomies foraminotomies L5-S1. #2 posterior spinal fusion L5-S1. #3 placement posterior instrumentation L5-S1. #4 interbody fusion L5-S1. #5 placement peek cage 12 x 22 mm L5-S1. #6 placement of locally harvested Maldonado's allograft in the posterior lateral gutters. #7 placement of infuse collagen sponge, mass graft the posterior gutters and ostial amp in the interbody space. Surgeon Dr. Betancourt Child Care Specialist Surgeon(s) none Estimated Blood Loss 50 cc Findings Recurrent disc herniation Specimens none per surgeon Anesthesia Type General Description of Procedure Patient was met with preoperatively case discussed all questions addressed. After informed consent obtained patient was taken to the operative suite underwent intubation and placed in a prone position on the Kyle table on top of the Isaiah frame. All bony prominences well-padded eyes inspected to ensure no external pressure placed upon the. This point the lumbar spine was prepped and draped in the normal sterile fashion. Sharp dissection with the assistance of Bovie cautery was then performed down to exposing the lamina and transverse processes of L5 and the sacral ala bilaterally. This point a revision complete laminectomy of L5 was performed addressing severe lateral recess disease and herniated disc on the left. Pedicle screws and placed in L5 and S1 levels bilaterally with the assistance of fluoroscopy and process jennifer placed. Through a transforaminal approach and left complete discectomy was performed endplates created to subcortical bleeding bone and a 12 x 22 mm peek cage filled with ostium bone graft tapped in position. Rods were then locked in final position bilaterally. The transverse process of L5 and sacral ala burred to subcortical bleeding bone InFUSE collagen sponge mesh graft and locally harvested morselized allograft was placed in the posterior gutters. 15 round SANDOVAL drain inserted. Incision was then closed with 1 Vicryl fascia 2-0 Vicryl substantially 4-0 Monocryl for fast closure Steri-Strips sterile dressings placed. Patient will continue PACU stable condition. I attest to the content of the Intraoperative Record and any orders documented therein. Any exceptions are noted below.
[2017-05-31] MEDS ORDERED: DO NOT ADMINISTER PNEUMOCOCCAL VACCINE PRN (14:00)
[2017-05-31] MEDS ORDERED: ALUMINUM/MAGNESIUM SUSP 30 ML UDC PO PRN (14:00)
[2017-05-31] MEDS ORDERED: NALOXONE HCL 0.4 MG/1 ML VIAL/CARP IV PRN ×2 (14:00)
[2017-05-31] MEDS ORDERED: DO NOT ADMINISTER FLU VACCINE PRN (14:00)
[2017-05-31] MEDS ORDERED: MAGNESIUM HYDROXIDE SUSP 30 ML UDC PO PRN (14:00)
[2017-05-31] MEDS ORDERED: NITROGLYCERIN 0.4 MG SL PER TAB CHARGE UT PRN (14:00)
[2017-05-31] MEDS ORDERED: SOD PHOSPHATE/SOD BIPHOSPHATE ENEMA 132 ML BTL PR PRN (14:00)
[2017-05-31] MEDS ORDERED: LORAZEPAM INJ 0.5 MG in SYRINGE 0 ML IV PRN (14:00)
[2017-05-31] MEDS ORDERED: PROMETHAZINE HCL INJ 12.5 MG in SODIUM CHLORIDE 0.9% 50ML 50 ML IV PRN (14:00)
[2017-05-31] MEDS ORDERED: ACETAMINOPHEN IV 100 ML IV PRN (14:00)
[2017-05-31] MEDS ORDERED: FAMOTIDINE 20 MG TAB PO PRN (14:00)
[2017-05-31] MEDS ORDERED: HYDROmorphone HCL 0.5MG/ML 50 ML CASSETTE IV PRN (14:00)
[2017-05-31] MEDS ORDERED: hydrOXYzine HCL 25 MG TAB PO PRN (14:00)
[2017-05-31] MEDS ORDERED: BISACODYL 10 MG SUPP PR PRN (14:00)
[2017-05-31] MEDS ORDERED: LORAZEPAM 0.5 MG TAB PO PRN (14:00)
[2017-05-31] MEDS ORDERED: ACETAMINOPHEN 500 MG TAB PO PRN (14:00)
[2017-05-31] MEDS ORDERED: METOCLOPRAMIDE HCL INJ 5 MG/ML 2 ML VIAL IV PRN (14:00)
[2017-05-31] MEDS ORDERED: GLYCOPYRROLATE INJ 0.2 MG/ML VIAL ONE (14:11)
[2017-05-31] MEDS ORDERED: NEOSTIGMINE METHYLSULFATE 1 MG/ML 10ML VIAL ONE (14:11)
[2017-05-31] MEDS ORDERED: EpHEDrine SULFATE 50MG/5ML SYR ONE (14:11)
[2017-05-31] MEDS ORDERED: HYDROmorphone HCL 0.5MG/ML 50 ML CASSETTE ONE (14:12)
--- NOTE | 2017-05-31 14:52 | Anesthesiology Progress Note ---
Anesthesia Post Op Note Date & Time May 31, 2017 at 14:52 Vital Signs Pain Intensity: 2 Vital Signs Past 12 Hours Date Time Temp Pulse Resp B/P (MAP) Pulse Ox O2 Delivery O2 Flow Rate FiO2 05/31/17 14:30 36.2 69 16 122/88 100 Oxymask 2 05/31/17 14:20 62 16 130/88 100 Oxymask 3 05/31/17 14:10 66 16 135/93 100 Oxymask 5 05/31/17 14:01 36.1 83 16 136/91 100 Oxymask 5 05/31/17 09:20 36.4 69 18 105/76 (86) 97 Room Air Notes Mental Status: alert / awake / arousable, participated in evaluation Pt Amnestic to Procedure: Yes Nausea / Vomiting: adequately controlled Pain: adequately controlled Airway Patency, RR, SpO2: stable & adequate BP & HR: stable & adequate Hydration State: stable & adequate Anesthetic Complications: no major complications apparent
[2017-05-31] MEDS ORDERED: HYDROCHLOROTHIAZIDE 25 MG TAB PO STA (15:32)
[2017-05-31] MEDS ORDERED: IMDSR/30 PO (16:11)
[2017-05-31] MEDS: LISINOPRIL 20 MG TAB PO SCH (16:43)
[2017-05-31] MEDS: CEFAZOLIN IV 2,000 MG in SYRINGE 0 ML IV SCH (18:36)
--- NOTE | 2017-05-31 19:45 | Medical Consult ---
Consultation Date of Consultation: May 31, 2017. Attending Physician: Gibran Betancourt D.O. Reason for Consultation: Medical management . History of Present Illness 42-year-old male followed by the [facility] in [place]. History of ischemic heart disease, hypertension, and other problems noted below. Lumbar decompression/fusion performed today by Dr. Betancourt. Doing well postoperatively. No chest pain. No cough or dyspnea. No nausea or vomiting. No Jones catheter; voiding without difficulty. Postop pain well-controlled. . Past Medical/Surgical History Chronic and Resolved Medical Problems: (1) Coronary artery disease Status: Chronic (2) Dyslipidemia Status: Chronic (3) Hypertension Status: Chronic Surgical Problems: (1) Status post arthroscopic knee surgery Status: Chronic (2) Status post coronary artery stent placement Status: Chronic (3) Status post lumbar surgery Status: Chronic . Family History Mother-heart disease, diabetes, cancer. Father-arthritis. . Social History Smoking Status: Current Every Day Smoker Alcohol Use: none Occupation Status: disabled Allergies Coded Allergies: BEE STING (Verified Allergy, Unknown, SWELLING AT SITE, 05/31/17) NO KNOWN DRUG ALLERGIES (Verified Allergy, Unknown, NONE, 05/31/17) Home Medications Reported Home Medications Medications Dose Route/Sig Max Daily Dose Days Date Category Dose Instructions Isosorbide Mononitrate ER (Isosorbide Mononitrate) 30 Mg Tabcr 1 Tab PO QAM 05/31/17 Reported Hydrochlorothiazide 12.5 Mg Tab 1 Tab PO QAM 90 05/26/17 Reported Prinivil (Lisinopril) 20 Mg Tab 20 Mg PO QAM 05/26/17 Reported Oxycontin (Oxycodone Hcl) 15 Mg Tab 5 Mg PO Q6H 03/02/17 Reported Lipitor (Atorvastatin Calcium) 20 Mg Tab 20 Mg PO HS 03/02/17 Reported Nitrostat (Nitroglycerin) 0.4 Mg Tab 0.4 Mg UT UD PRN 09/30/16 Reported Toprol-Xl (Metoprolol Succinate) 25 Mg Tabcr 12.5 Mg PO BID 09/30/16 Reported Aspirin Ec (Aspirin) 81 Mg Tab 81 Mg PO QAM 09/30/16 Reported WILL FOLLOW SURGEON INSTRUCTIONS Current Inpatient Medications Current Inpatient Medications Medications (Trade) Dose Ordered Sig/Elizabeth Route Start Time Stop Time Status Last Admin Dose Admin Lactated Ringer's 1,000 ml @ 15 mls/hr Q24H IV 05/31/17 06:00 06/01/17 05:59 05/31/17 09:38 15 MLS/HR Promethazine HCl 12.5 mg/Sodium Chloride 50.5 ml @ 202 mls/hr Q6H PRN IV 05/31/17 14:00 06/30/17 13:59 Ondansetron HCl (Zofran Inj) 4 mg Q6H PRN IV 05/31/17 14:00 06/30/17 13:59 Metoclopramide HCl (Reglan Inj) 10 mg Q6H PRN IV 05/31/17 14:00 06/30/17 13:59 Lorazepam (Ativan Tab) 0.5 mg Q8H PRN PO 05/31/17 14:00 06/30/17 13:59 Lorazepam 0.5 mg/ Syringe 0.25 ml @ 1 mls/min Q8H PRN IV 05/31/17 14:00 06/30/17 13:59 Pneumococcal Polysaccharide Vaccine 1 ea PRN PRN N/A 05/31/17 14:00 06/30/17 13:59 Influenza Virus Vacc Triv Types A&B 1 ea PRN PRN N/A 05/31/17 14:00 06/30/17 13:59 Polyethylene (Miralax Powder Packet) 17 gm Q6 PO 06/02/17 06:00 07/02/17 05:59 Bisacodyl (Dulcolax Supp) 10 mg DAILY PRN AL 05/31/17 14:00 06/30/17 13:59 Magnesium Hydroxide (Milk Of Magnesia Susp) 30 ml DAILY PRN PO 05/31/17 14:00 06/30/17 13:59 Hydromorphone HCl (Dilaudid Inj) 0.5-1mg prn moder... Q3H PRN IV 06/01/17 06:00 06/15/17 05:59 Oxycodone HCl (Roxicodone Immediate Rel Tab) 5-10mg prn moderate to sev... Q4H PRN PO 06/01/17 06:00 06/15/17 05:59 Cefazolin Sodium 2000 mg/Syringe 15 ml @ 3.75 mls/ min Q8H IV 05/31/17 18:00 06/01/17 02:03 05/31/17 18:36 3.75 MLS/MIN Sodium Chloride 1,000 ml @ 150 mls/hr Q6H40M IV 05/31/17 15:30 06/30/17 15:29 Acetaminophen (Tylenol Tab) 1,000 mg Q8H PRN PO 05/31/17 14:00 06/30/17 13:59 Acetaminophen 100 ml @ 400 mls/hr Q8H PRN IV 05/31/17 14:00 06/30/17 13:59 Naloxone HCl (Narcan Inj) 0.1 mg Q5M PRN IV 05/31/17 14:00 06/30/17 13:59 Senna/Docusate Sodium (Senokot S Tab) 2 tab HS PO 05/31/17 21:00 06/30/17 20:59 Sodium Biphosphate/ Sodium Phosphate (Fleet Enema) 132 ml ONE PRN AL 05/31/17 14:00 06/30/17 13:59 Hydroxyzine HCl (Vistaril Tab) 25 mg Q8H PRN PO 05/31/17 14:00 06/30/17 13:59 Al Hydroxide/Mg Hydroxide (Maalox Susp) 30 ml Q6H PRN PO 05/31/17 14:00 06/30/17 13:59 Famotidine (Pepcid Tab) 20 mg Q12 PRN PO 05/31/17 14:00 06/30/17 13:59 Diphenhydramine HCl (Benadryl Cap) 25 mg Q6H PRN PO 05/31/17 14:00 06/30/17 13:59 Miscellaneous Information (Discontinue NON DESTRUCTIVE TESTING SUPERVISOR) 1 ea TODAY@0600 ONCE N/A 06/01/17 06:00 06/01/17 06:01 Naloxone HCl (Narcan Inj) 0.1 mg Q5M PRN IV 05/31/17 14:00 06/01/17 06:00 Hydromorphone HCl (Dilaudid Clinical Services Director) 25 mg PRN PRN IV 05/31/17 14:00 06/01/17 06:00 Sodium Chloride 1,000 ml @ 15 mls/hr Q24H IV 05/31/17 13:58 06/01/17 06:00 Aspirin (Ecotrin Tab) 81 mg QAM PO 06/01/17 09:00 07/01/17 08:59 Atorvastatin Calcium (Lipitor Tab) 20 mg HS PO 05/31/17 21:00 06/30/17 20:59 Lisinopril (Zestril Tab) 20 mg QAM PO 05/31/17 16:00 06/30/17 15:59 05/31/17 16:43 20 MG Metoprolol Succinate (Toprol Xl Tab) 12.5 mg BID PO 05/31/17 21:00 06/30/17 20:59 Nitroglycerin (Nitrostat Tab) 0.4 mg UD PRN UT 05/31/17 14:00 06/30/17 13:59 Oxycodone HCl (Roxicodone Immediate Rel Tab) 5 mg Q6H PRN PO 06/01/17 06:00 06/15/17 05:59 Hydrochlorothiazide (Hydrochlorothiazide Tab) 12.5 mg QAM PO 06/01/17 09:00 07/01/17 08:59 Isosorbide Mononitrate (Imdur Ext Rel Tab) 30 mg QAM PO 06/01/17 09:00 07/01/17 08:59 Review of Systems Constitutional: + weight loss (Attributed to improve diet), No fever Respiratory: No cough, No shortness of breath Cardiovascular: No chest pain Abdomen: No nausea, No vomiting, No GI bleeding Musculoskeletal: + joint pain (Low back pain) Genitourinary - Male: No hematuria Hematologic / Lymphatic: No abnormal bleeding/bruising Physical Exam Date Time Temp Pulse Resp B/P (MAP) Pulse Ox O2 Delivery O2 Flow Rate FiO2 05/31/17 19:39 36.4 59 16 106/68 (81) 99 Nasal Cannula 2.0 05/31/17 18:03 36.7 62 16 110/77 (88) 99 Nasal Cannula 2.0 05/31/17 17:00 36.3 60 16 106/68 (81) 100 Nasal Cannula 2.0 05/31/17 16:00 57 16 120/78 (92) 100 Nasal Cannula 2.0 05/31/17 15:30 36.3 60 17 115/75 (88) 100 Nasal Cannula 2.0 05/31/17 15:00 36.6 65 16 117/76 (90) 100 Nasal Cannula 2.0 05/31/17 15:00 100 Nasal Cannula 2.0 05/31/17 14:45 66 16 115/76 100 Oxymask 2 05/31/17 14:30 36.2 69 16 122/88 100 Oxymask 2 05/31/17 14:20 62 16 130/88 100 Oxymask 3 05/31/17 14:10 66 16 135/93 100 Oxymask 5 05/31/17 14:01 36.1 83 16 136/91 100 Oxymask 5 05/31/17 09:20 36.4 69 18 105/76 (86) 97 Room Air CONSTITUTIONAL vital signs as noted above well-developed, well-nourished, no acute distress EYES conjunctivae clear; lids normal pupils equal and reactive to light EARS, NOSE, MOUTH AND THROAT external inspection of ears and nose unremarkable hearing grossly intact to spoken voice oropharynx clear dentition fair NECK no masses; trachea midline thyroid normal RESPIRATORY normal respiratory effort; no respiratory distress clear to auscultation CARDIOVASCULAR regular rate and rhythm no murmur, gallop, rub appreciated no pretibial edema GASTROINTESTINAL normal bowel sounds, soft, nontender; no palpable masses no hepatomegaly; no splenomegaly LYMPHATIC no cervical adenopathy MUSCULOSKELETAL no cyanosis; no digital clubbing no calf tenderness motor strength testing extremities limited due to postoperative status TEDS and SCD's applied. SKIN no rash warm and dry NEUROLOGIC PERRL, EOMI, no facial palsy, no dysarthria, tongue midline PSYCHIATRIC oriented to person, place, time mood and affect appropriate . Laboratory Results Last 24 Hours Test 05/31/17 09:35 Sodium Level 137 mmol/L Potassium Level 3.8 mmol/L Chloride Level 105 mmol/L Carbon Dioxide Level 27 mmol/L Anion Gap 5.0 mmol/L Blood Urea Nitrogen 22 mg/dl Creatinine 1.22 mg/dl Est Creatinine Clear Calc Drug Dose 87.5 ml/min Estimated GFR () 84.8 Estimated GFR (Non- 73.2 BUN/Creatinine Ratio 18.1 Random Glucose 90 mg/dl Calcium Level 9.6 mg/dl Assessment & Plan S/P LUMBAR DECOMPRESSION & FUSION Doing well postoperatively. CORONARY ARTERY DISEASE History of coronary artery disease, status post stent placement. No recent anginal symptoms. Continue aspirin, metoprolol, isosorbide dinitrate, statin. HYPERTENSION Hemodynamically stable postoperatively. Continue metoprolol, HCTZ, and lisinopril. DYSLIPIDEMIA Continue atorvastatin. VTE PROPHYLAXIS Per Orthopedics protocol. Thank you for this consultation. We will follow the patient with you during their hospital stay. You can reach a member of the [facility] Medicine Team 27/09 via pager @ [phone]. You can reach me via cell @ [phone]. .
[2017-05-31] MEDS: SODIUM CHLORIDE 0.9% 1000ML 1,000 ML IV SCH (20:34)
[2017-05-31] MEDS: DOCUSATE SODIUM/SENNA 50/8.6MG TAB PO SCH (20:49)
[2017-05-31] MEDS: ATORVASTATIN 20 MG TAB PO SCH (20:49)
[2017-05-31] MEDS: METOPROLOL SUCC 25MG EXT REL TAB PO SCH (20:50)
[2017-06-01] MEDS: SODIUM CHLORIDE 0.9% 1000ML 1,000 ML IV SCH (02:24)
[2017-06-01] MEDS: CEFAZOLIN IV 2,000 MG in SYRINGE 0 ML IV SCH (02:24)
[2017-06-01 03:55] VITALS: BP 102/58; PULSE 56; TEMP 36.4; O2SAT 96
[2017-06-01] MEDS ORDERED: NURSING VERBAL MED ORDER ONE (05:00)
[2017-06-01] MEDS ORDERED: OXYCODONE HCL IR 5 MG TAB (IMMEDIATE RELEASE) PO PRN (06:00)
[2017-06-01] MEDS ORDERED: DC PCA ONE (06:00)
[2017-06-01] MEDS ORDERED: HYDROmorphone INJ 0.5 MG/0.5 ML SYR IV PRN (06:00)
[2017-06-01] MEDS: OXYCODONE HCL IR 5 MG TAB (IMMEDIATE RELEASE) PO PRN ×5 (06:08→23:23)
[2017-06-01 06:12] LABS: BASO % 0.1 %; BASO ABS # 0.01 K/uL (0-0.2); EOS % 0.1 %; EOS ABS # 0.01 K/uL (0-0.5); HEMOGLOBIN 12.1 g/dL (14.0-18.0); IG# 0.05 K/uL (0.00-0.02); LYMPH ABS # 1.99 K/uL (1.2-3.4); MEAN CELL VOLUME 87.3 fL (80-100); MEAN CORPUSCULAR HEMOGLOBIN 30.2 pg (25-34); MEAN CORPUSCULAR HGB CONC 34.6 g/dl (32-36); MEAN PLATELET VOLUME 10.5 fL (7.4-10.4); MONO % 6.1 %; MONO ABS # 1.11 K/uL (0.11-0.59); NEUT % 82.4 %; NEUT ABS # 14.91 K/uL (1.4-6.5); PLATELET COUNT 189 K/uL (130-400); WHITE BLOOD COUNT 18.08 K/uL (4.8-10.8)
[2017-06-01 06:39] LABS: CALCIUM 8.9 mg/dl (8.5-10.1); CREATININE 1.04 mg/dl (0.60-1.40); POTASSIUM 4.1 mmol/L (3.5-5.1)
[2017-06-01 07:01] VITALS: BP 99/62; PULSE 60; TEMP 36.6; O2SAT 99
[2017-06-01] MEDS ORDERED: ISOSORBIDE MONONITRATE 20 MG TAB PO SCH (09:00)
[2017-06-01] MEDS: METOPROLOL SUCC 25MG EXT REL TAB PO SCH ×2 (09:00→21:00)
--- NOTE | 2017-06-01 09:07 | Progress Note ---
Progress Note Date of Service Jun 01, 2017. Progress Note Pain is well controlled. Leg symptoms resolved. On exam he is in a chair at the bedside is good strength testing appears comfortable. Assessment status post revision decompression fusion. Plan at this time is really progressing nicely. We will monitor his SANDOVAL output and response to therapy and possibly discharge home tomorrow.
[2017-06-01] MEDS ORDERED: RXC5 PO (09:10)
[2017-06-01] MEDS: ASPIRIN 81 MG ECTAB PO SCH (09:11)
--- NOTE | 2017-06-01 09:11 | Discharge Instructions ---
Discharge Instructions Date of Service Jun 01, 2017. Admission Reason for Admission: Spinal Stenosis Discharge Discharge Diagnosis / Problem: lumbar stenosis Discharge Goals Goal(s): Improve function Activity Recommendations Activity Limitations: per Instructions/Follow-up section . Instructions / Follow-Up Instructions / Follow-Up ACTIVITY RECOMMENDATIONS: SELF CARE INSTRUCTIONS AFTER THORACIC/LUMBAR FUSIONS 1. You may walk to your tolerance. It is good exercise for your legs and back. Expect some back and intermittent leg aches and pains. 2. You may perform "counter-top" level activities (make a sandwich, yumiko with a project, etc.). 3. No bending or lifting of more than 10 pounds or back twisting of any nature (roll like a log when turning in bed). 4. You may ride in a car for 20-30 minutes at a time. No driving until after your first visit with your doctor. 5. Frequent changes of position and restricting sitting to 30 minutes at a time will help limit the amount of back spasms and stiffness you may experience. 6. You may discontinue the use of ambulatory aids (cane, crutches, etc.) once your strength and confidence allow. 7. You may medical administrative specialist the shower and let water strike your incision when you arrive home at least once daily. Do not take a tub bath, sit in a hot tub or go into a swimming pool until after your first recheck in the office. SPECIAL CARE INSTRUCTIONS: VERY IMPORTANT TO READ AND REVIEW A. Your surgical incision has been closed with a cosmetic suture under the skin that will dissolve in about 6 weeks. In 14 days, you can use a pair of clean scissors and cut the suture that is left outside of the skin at the ends of your incision. 1. The small skin tapes can be removed 7 days after surgery if they have not fallen off by that point. 2. You may keep the wound open to air as much as possible to promote healing after post-op day number 5 unless told otherwise by your doctor. 3. If you think the wound looks like it is becoming infected (redness or worsening drainage) and/or you are experiencing fever, chill or worsening back pain and muscle spasms, contact the office so that we may evaluate you as soon as possible. B. Complications are uncommon, but please contact us if you have any signs or symptoms of: 1. wound infection (fever higher than 102.5 degrees F, redness, separation of wound, drainage, or increasing pain from the incision) 2. blood clots in legs (pain, swelling, redness and warmth in legs) 3. urinary tract infection (fever higher than 102.5 degrees F, burning upon urination or increased frequency of urination) 4. nerve problems (inability to walk on your toes or heels, numbness, loss of bowel or bladder control) 5. any other symptoms that concern you C. Please call the office at if you have any concerns or questions about your operation or recovery. D. No smoking! Smoking drastically decreases the chance of a solid fusion. E. Do not take any anti-inflammatory medications (Indocin, Advil, Motrin, Aspirin, Naprosyn, etc.) as these may inhibit the chance of a solid fusion. Tylenol is okay to take for pain. MANAGING PAIN AFTER SPINAL SURGERY 1. Narcotic medication is intended for short-term use and will be provided for surgical pain. Surgical pain usually lasts for a period of 4-6 weeks. Narcotic medication includes Percocet, Vicodin, Darvocet, Tylenol #3 or Lortab. 2. Longer-term pain is more appropriately treated with non-narcotic medication such as Tylenol ES. 3. Muscle spasm is not appropriately treated with narcotics. Muscle relaxers such as Soma, Flexeril or Skelaxin can be used along with Tylenol ES. 4. Remember that we all live with some "aches and pains". This is not unusual or uncommon after an injury or as we get older. a. Back pain is expected and may include muscle spasms for 4 to 6 weeks after surgery. The pain should gradually improve. If the pain worsens for no apparent reason, please contact the office. b. Intermittent leg pain may also be experienced and should not be concerned about unless it worsens for no apparent reason. If so, please contact the office. 5. We will provide appropriate medication within the normal guidelines of their prescribed use. We will also be very cautious and aware of potential abuse and extended duration of patients' medication needs. a. Pain medications are for your comfort and to assist with sleep and rest so that the tissue can heal. They are not provided in order to return to normal activity and should not be used through the day. To do so or worsening pain at night can result from ongoing tissue damage and development of tolerance to the prescribed medicine. 6. Please allow 2-3 days to process refills. Prescriptions will not be mailed but must be picked up at the office. FOLLOW UP VISIT: Keep your scheduled follow-up appointment. Any questions, please call the office at . Current Hospital Diet Patient's current hospital diet: Regular Diet Discharge Diet Recommended Diet: Regular Diet Procedures Procedures Performed: 1. Revision decompression medial facetectomies foraminotomies L5-S1. #2 posterior spinal fusion L5-S1. #3 placement posterior instrumentation L5-S1. #4 interbody fusion L5-S1. #5 placement peek cage 12 x 22 mm L5-S1. #6 placement of locally harvested Maldonado's allograft in the posterior lateral gutters. #7 placement of infuse collagen sponge, mass graft the posterior gutters and ostial amp in the interbody space. Pending Studies Studies pending at discharge: no Medical Emergencies . Who to Call and When: Medical Emergencies: If at any time you feel your situation is an emergency, please call 911 immediately. . Non-Emergent Contact Non-Emergency issues call your: Primary Care Provider . "Provider Documentation" section prepared by Gibran Betancourt. .
[2017-06-01] MEDS: LISINOPRIL 20 MG TAB PO SCH (09:13)
[2017-06-01] MEDS: HYDROCHLOROTHIAZIDE 25 MG TAB PO SCH (09:13)
[2017-06-01] MEDS: ISOSORBIDE MONONITRATE 30 MG TABCR PO SCH (09:23)
[2017-06-01 11:08] VITALS: BP 99/62; PULSE 58; O2SAT 98
[2017-06-01 15:34] VITALS: BP 96/56; PULSE 68; TEMP 36.9; O2SAT 97
[2017-06-01] MEDS: ATORVASTATIN 20 MG TAB PO SCH (21:00)
[2017-06-01] MEDS: DOCUSATE SODIUM/SENNA 50/8.6MG TAB PO SCH (21:00)
[2017-06-01 22:38] VITALS: BP 119/76; PULSE 74; TEMP 36.9; O2SAT 98
[2017-06-02] MEDS: OXYCODONE HCL IR 5 MG TAB (IMMEDIATE RELEASE) PO PRN ×3 (03:24→13:04)
[2017-06-02] MEDS: POLYETHYLENE (MIRALAX) 17 GM PACK PO SCH ×2 (05:02→12:00)
--- NOTE | 2017-06-02 05:32 | Progress Note ---
Medicine Progress Note Date & Time of Visit: Jun 01, 2017 at 17:10 . Subjective Late entry secondary to computer downtime. Doing fairly well postoperatively. Busy in physical therapy today, ambulating and climbing steps. Having some postop discomfort after PT. No chest pain. No cough or dyspnea. No nausea or vomiting. Passing flatus, no stool. Voiding without difficulty. . Objective Vital signs this morning at 0701: temperature 36.6, pulse 60, respirations 18, blood pressure 99/62 . Physical Exam: General-lying in bed, no distress Lungs- clear to auscultation; no respiratory distress Cardiovascular- RRR; no murmur; no gallop; no JVD; no pretibial edema Abdomen- + bowel sounds, soft, nontender Extremities- no cyanosis; no calf tenderness Neuro- alert, oriented Skin- warm & dry . Laboratory Results: Last 24 Hours Test 06/01/17 05:39 White Blood Count 18.08 K/uL Red Blood Count 4.01 M/uL Hemoglobin 12.1 g/dL Hematocrit 35.0 % Mean Corpuscular Volume 87.3 fL Mean Corpuscular Hemoglobin 30.2 pg Mean Corpuscular Hemoglobin Concent 34.6 g/dl Platelet Count 189 K/uL Mean Platelet Volume 10.5 fL Neutrophils (%) (Auto) 82.4 % Lymphocytes (%) (Auto) 11.0 % Monocytes (%) (Auto) 6.1 % Eosinophils (%) (Auto) 0.1 % Basophils (%) (Auto) 0.1 % Neutrophils # (Auto) 14.91 K/uL Lymphocytes # (Auto) 1.99 K/uL Monocytes # (Auto) 1.11 K/uL Eosinophils # (Auto) 0.01 K/uL Basophils # (Auto) 0.01 K/uL RDW Standard Deviation 42.0 fL RDW Coefficient of Variation 13.0 % Immature Granulocyte % (Auto) 0.3 % Immature Granulocyte # (Auto) 0.05 K/uL Sodium Level 137 mmol/L Potassium Level 4.1 mmol/L Chloride Level 107 mmol/L Carbon Dioxide Level 23 mmol/L Anion Gap 7.0 mmol/L Blood Urea Nitrogen 18 mg/dl Creatinine 1.04 mg/dl Est Creatinine Clear Calc Drug Dose 102.6 ml/min Estimated GFR () 102.9 Estimated GFR (Non- 88.8 BUN/Creatinine Ratio 17.3 Random Glucose 110 mg/dl Calcium Level 8.9 mg/dl Assessment & Plan S/P LUMBAR DECOMPRESSION & FUSION Doing well postoperatively. CORONARY ARTERY DISEASE History of coronary artery disease, status post stent placement. No anginal symptoms. Continue aspirin, metoprolol, isosorbide dinitrate, statin. HYPERTENSION Blood pressures running a bit low. Continue metoprolol, HCTZ, and lisinopril with hold parameters. DYSLIPIDEMIA Continue atorvastatin. VTE PROPHYLAXIS Per Orthopedics protocol. Thank you for this consultation. We will follow the patient with you during their hospital stay. You can reach a member of the [facility] Medicine Team 27/09 via pager @ [phone]. You can reach me via cell @ [phone]. . Current Inpatient Medications: Current Inpatient Medications Medications (Trade) Dose Ordered Sig/Elizabeth Route Start Time Stop Time Status Last Admin Dose Admin Promethazine HCl 12.5 mg/Sodium Chloride 50.5 ml @ 202 mls/hr Q6H PRN IV 05/31/17 14:00 06/30/17 13:59 Ondansetron HCl (Zofran Inj) 4 mg Q6H PRN IV 05/31/17 14:00 06/30/17 13:59 Metoclopramide HCl (Reglan Inj) 10 mg Q6H PRN IV 05/31/17 14:00 06/30/17 13:59 Lorazepam (Ativan Tab) 0.5 mg Q8H PRN PO 05/31/17 14:00 06/30/17 13:59 Lorazepam 0.5 mg/ Syringe 0.25 ml @ 1 mls/min Q8H PRN IV 05/31/17 14:00 06/30/17 13:59 Pneumococcal Polysaccharide Vaccine 1 ea PRN PRN N/A 05/31/17 14:00 06/30/17 13:59 Influenza Virus Vacc Triv Types A&B 1 ea PRN PRN N/A 05/31/17 14:00 06/30/17 13:59 Polyethylene (Miralax Powder Packet) 17 gm Q6 PO 06/02/17 06:00 07/02/17 05:59 Bisacodyl (Dulcolax Supp) 10 mg DAILY PRN PA 05/31/17 14:00 06/30/17 13:59 Magnesium Hydroxide (Milk Of Magnesia Susp) 30 ml DAILY PRN PO 05/31/17 14:00 06/30/17 13:59 Hydromorphone HCl (Dilaudid Inj) 0.5-1mg prn moder... Q3H PRN IV 06/01/17 06:00 06/15/17 05:59 06/01/17 16:48 0.5 MG Oxycodone HCl (Roxicodone Immediate Rel Tab) 5-10mg prn moderate to sev... Q4H PRN PO 06/01/17 06:00 06/15/17 05:59 06/02/17 03:24 10 MG Acetaminophen (Tylenol Tab) 1,000 mg Q8H PRN PO 05/31/17 14:00 06/30/17 13:59 Acetaminophen 100 ml @ 400 mls/hr Q8H PRN IV 05/31/17 14:00 06/30/17 13:59 Naloxone HCl (Narcan Inj) 0.1 mg Q5M PRN IV 05/31/17 14:00 06/30/17 13:59 Senna/Docusate Sodium (Senokot S Tab) 2 tab HS PO 05/31/17 21:00 06/30/17 20:59 06/01/17 21:00 2 TAB Sodium Biphosphate/ Sodium Phosphate (Fleet Enema) 132 ml ONE PRN PA 05/31/17 14:00 06/30/17 13:59 Hydroxyzine HCl (Vistaril Tab) 25 mg Q8H PRN PO 05/31/17 14:00 06/30/17 13:59 Al Hydroxide/Mg Hydroxide (Maalox Susp) 30 ml Q6H PRN PO 05/31/17 14:00 06/30/17 13:59 Famotidine (Pepcid Tab) 20 mg Q12 PRN PO 05/31/17 14:00 06/30/17 13:59 Diphenhydramine HCl (Benadryl Cap) 25 mg Q6H PRN PO 05/31/17 14:00 06/30/17 13:59 Aspirin (Ecotrin Tab) 81 mg QAM PO 06/01/17 09:00 07/01/17 08:59 06/01/17 09:11 81 MG Atorvastatin Calcium (Lipitor Tab) 20 mg HS PO 05/31/17 21:00 06/30/17 20:59 06/01/17 21:00 20 MG Lisinopril (Zestril Tab) 20 mg QAM PO 05/31/17 16:00 06/30/17 15:59 06/01/17 09:13 20 MG Metoprolol Succinate (Toprol Xl Tab) 12.5 mg BID PO 05/31/17 21:00 06/30/17 20:59 Nitroglycerin (Nitrostat Tab) 0.4 mg UD PRN UT 05/31/17 14:00 06/30/17 13:59 Oxycodone HCl (Roxicodone Immediate Rel Tab) 5 mg Q6H PRN PO 06/01/17 06:00 06/15/17 05:59 Hydrochlorothiazide (Hydrochlorothiazide Tab) 12.5 mg QAM PO 06/01/17 09:00 07/01/17 08:59 06/01/17 09:13 12.5 MG Isosorbide Mononitrate (Imdur Ext Rel Tab) 30 mg QAM PO 06/01/17 09:00 07/01/17 08:59 06/01/17 09:23 30 MG
[2017-06-02 06:35] VITALS: BP 91/61; PULSE 94; TEMP 37; O2SAT 96
[2017-06-02] MEDS: LISINOPRIL 20 MG TAB PO SCH (09:00)
[2017-06-02] MEDS: ISOSORBIDE MONONITRATE 30 MG TABCR PO SCH (09:14)
[2017-06-02] MEDS: HYDROCHLOROTHIAZIDE 25 MG TAB PO SCH (09:15)
[2017-06-02] MEDS: ASPIRIN 81 MG ECTAB PO SCH (09:15)
[2017-06-02 09:18] VITALS: BP 103/66; PULSE 76
[2017-06-02] MEDS: METOPROLOL SUCC 25MG EXT REL TAB PO SCH (10:47)
--- NOTE | 2017-06-02 11:38 | Discharge Summary ---
Orthopedic Discharge Summary Admission Date/Reason May 31, 2017 at 09:05 Spinal Stenosis. Discharge Date/Disposition Jun 02, 2017 Home Diagnosis Principal Diagnosis: Lumbar spinal stenosis Admission Physical Exam As per Admitting History & Physical. Hospital Course Patient underwent revision decompression and fusion tolerated this well was taken to the orthopedic floor postoperatively. Postop day #1 he was up and amatory progressed through postop day #2. SANDOVAL drain decreased appropriately. Pain improved. Subsequently was discharged home. Discharge orders and instructions found in the chart for further review. Discharge Instructions Please refer to the electronic Patient Visit Report (Discharge Instructions) for additional information.
[2017-06-02 12:40] VITALS: BP 103/66; PULSE 76; TEMP 37; O2SAT 96
--- NOTE | 2017-06-02 15:20 | Anesthesiology Progress Note ---
Anesthesia Post Op Note Date & Time Jun 02, 2017 at 15:18 Vital Signs Pain Intensity: 8.0 Vital Signs Past 12 Hours Date Time Temp Pulse Resp B/P (MAP) Pulse Ox O2 Delivery O2 Flow Rate FiO2 06/02/17 12:40 37.0 76 18 96 Room Air 06/02/17 09:18 76 103/66 (78) 06/02/17 08:01 Room Air 06/02/17 06:35 37.0 94 18 91/61 (71) 96 Room Air Notes Mental Status: alert / awake / arousable, participated in evaluation Pt Amnestic to Procedure: Yes Nausea / Vomiting: adequately controlled Pain: adequately controlled Airway Patency, RR, SpO2: stable & adequate BP & HR: stable & adequate Hydration State: stable & adequate Anesthetic Complications: no major complications apparent This post-op visit was made on June 01, 2017 @ 07:30 AM
== END 2017-06-02 13:40 | disposition home or self-care (01) | DRG 455 ==
LOC: C.ACU 08:27 → C.3E 09:05 → ENRESERV 14:27
PROVIDERS: ADMIT Orthopaedic Surgery Orthopaedic Surgery of the Spine; ATTEND Orthopaedic Surgery Orthopaedic Surgery of the Spine
PROC: 0ST40ZZ Resection of Lumbosacral Disc, Open Approach (ICD-10-PCS; principal; 2017-05-31 10:45)
PROC: 0SG30AJ Fusion of Lumbosacral Joint with Interbody Fusion Device, Posterior Approach, Anterior Column, Open Approach (ICD-10-PCS; principal; 2017-05-31 10:45)
PROC: 0SG30K1 Fusion of Lumbosacral Joint with Nonautologous Tissue Substitute, Posterior Approach, Posterior Column, Open Approach (ICD-10-PCS; principal; 2017-05-31 10:45)
DX: M51.27 Other intervertebral disc displacement, lumbosacral region (principal); I11.9 Hypertensive heart disease without heart failure; I25.10 Atherosclerotic heart disease of native coronary artery without angina pectoris; E78.5 Hyperlipidemia, unspecified; F17.200 Nicotine dependence, unspecified, uncomplicated; Z79.899 Other long term (current) drug therapy; Z79.82 Long term (current) use of aspirin; Z95.5 Presence of coronary angioplasty implant and graft; Z91.030 Bee allergy status; Z82.49 Family history of ischemic heart disease and other diseases of the circulatory system; Z82.61 Family history of arthritis